=== PATIENT | male | born 1945 | race Caucasian/White ===

== ENCOUNTER → 2017-07-02 06:19 | Outpatient (CLI) | payer MEDICARE, SELFPAY ==
--- NOTE | 2017-07-02 09:59 | STRESSREP ---
Stress Test Report Date: 07/02/2017 Procedure: Exercise tolerance test/imaging study Indications: Chest pain Consent: Per the patient Procedure: The patient exercised on a Roger protocol for 6 minutes completing stage 2 achieving a peak heart rate of 157 bpm (106 % predicted maximal heart rate) with a peak blood pressure 190/82 mmHg and a peak MET capacity of 7 METs. The baseline ECG demonstrated normal sinus rhythm. The peak exercise ECG demonstrated no obvious ECG changes. There were no cardiac dysrhythmias pretest, during exercise, or recovery. The functional capacity was considered. There was no complaint of chest discomfort during exercise or recovery. The examination was discontinued secondary to dyspnea. Impression: 1. Technically adequate (percent predicted maximal heart rate greater than 85%) exercise tolerance test 2. Peak exercise ECG no obvious ECG changes 3. No cardiac dysrhythmias pretest, during exercise, or recovery. 4. Nuclear images pending Myocardial perfusion imaging study: Technique: The patient was injected with 11.9 mCi of technetium 99m Cardiolite and subsequently rest SPECT Cardiolite nuclear imaging was obtained in the horizontal long, vertical long, and short axis views. The patient exercised on a Rgoer protocol for 6 minutes completing stage 2 achieving a peak heart rate of 157 bpm (106 % predicted maximal heart rate) with a peak blood pressure 190/82 mmHg and a peak MET capacity of 7 METs. The patient was injected with 4.5 mCi of technetium 99m Cardiolite and subsequently stress SPECT Cardiolite nuclear imaging was obtained in the horizontal long, vertical long, and short axis views. A gated Cardiolite study at peak stress was obtained. Interpretation: Rest and stress SPECT Cardiolite nuclear imaging status post realignment, normalization, and attenuation correction, demonstrates the appearance of relative uniform tracer uptake and myocardial perfusion appearing within normal limits. There is end systolic thickening and brightening. The gated Cardiolite study demonstrates myocardial thickening and inward wall motion. The reported LVEF is 69 %. Impression: 1. Rest and stress SPECT Cardiolite nuclear imaging demonstrate relative uniform tracer uptake and myocardial perfusion appearing within normal limits. 2. The gated Cardiolite study reports an LVEF of 69 %. This note was generated with [employer] software. It may contain incorrect words, spelling, and punctuation that were not noted in checking the note before signing.
--- NOTE | 2017-07-02 10:03 | STRESSREP_ITS ---
Stress Test Report Date: 07/02/2017 Procedure: Exercise tolerance test/imaging study Indications: Chest pain Consent: Per the patient Procedure: The patient exercised on a Roger protocol for 6 minutes completing stage 2 achieving a peak heart rate of 157 bpm (106 % predicted maximal heart rate) with a peak blood pressure 190/82 mmHg and a peak MET capacity of 7 METs. The baseline ECG demonstrated normal sinus rhythm. The peak exercise ECG demonstrated no obvious ECG changes. There were no cardiac dysrhythmias pretest, during exercise, or recovery. The functional capacity was considered. There was no complaint of chest discomfort during exercise or recovery. The examination was discontinued secondary to dyspnea. Impression: 1. Technically adequate (percent predicted maximal heart rate greater than 85% ) exercise tolerance test 2. Peak exercise ECG no obvious ECG changes 3. No cardiac dysrhythmias pretest, during exercise, or recovery. 4. Nuclear images pending Myocardial perfusion imaging study: Technique: The patient was injected with 11.9 mCi of technetium 99m Cardiolite and subsequently rest SPECT Cardiolite nuclear imaging was obtained in the horizontal long, vertical long, and short axis views. The patient exercised on a Roger protocol for 6 minutes completing stage 2 achieving a peak heart rate of 157 bpm (106 % predicted maximal heart rate) with a peak blood pressure 190/ 82 mmHg and a peak MET capacity of 7 METs. The patient was injected with 4.5 mCi of technetium 99m Cardiolite and subsequently stress SPECT Cardiolite nuclear imaging was obtained in the horizontal long, vertical long, and short axis views. A gated Cardiolite study at peak stress was obtained. Interpretation: Rest and stress SPECT Cardiolite nuclear imaging status post realignment, normalization, and attenuation correction, demonstrates the appearance of relative uniform tracer uptake and myocardial perfusion appearing within normal limits. There is end systolic thickening and brightening. The gated Cardiolite study demonstrates myocardial thickening and inward wall motion. The reported LVEF is 69 %. Impression: 1. Rest and stress SPECT Cardiolite nuclear imaging demonstrate relative uniform tracer uptake and myocardial perfusion appearing within normal limits. 2. The gated Cardiolite study reports an LVEF of 69 %. This note was generated with [employer] software. It may contain incorrect words, spelling, and punctuation that were not noted in checking the note before signing.
== END ==
PROVIDERS: Family Provider Internal Medicine; PCP Internal Medicine; Visit Provider Internal Medicine
DX: R07.89 Other chest pain (principal)
CPT/HCPCS: 78452; 93017; A9500; A4216

== ENCOUNTER → 2017-12-29 09:22 | Outpatient (CLI) | payer MEDICARE, SELFPAY ==
[2017-12-29 10:08] LABS: PSA,Total - Annual Screen 2.15 ng/mL (0.00-4.00)
== END ==
PROVIDERS: Family Provider Internal Medicine; PCP Internal Medicine; Visit Provider Urology
DX: Z12.5 Encounter for screening for malignant neoplasm of prostate (principal)
CPT/HCPCS: 36415; 84153; G0103

== ENCOUNTER → 2019-01-16 13:56 | Outpatient (CLI) | payer MEDICARE, SELFPAY ==
[2019-01-16 15:24] LABS: PSA,Total- Diagnostic 1.49 ng/mL (0.0-4.0)
== END ==
PROVIDERS: Family Provider Internal Medicine; PCP Internal Medicine; Referring Provider Urology; Visit Provider Urology
DX: R97.20 Elevated prostate specific antigen [PSA] (principal)
CPT/HCPCS: 36415; 84153

== ENCOUNTER → 2020-01-23 13:53 | Outpatient (CLI) | payer MEDICARE, SELFPAY ==
[2020-01-23 14:44] LABS: PSA,Total- Diagnostic 1.78 ng/mL (0.0-4.0)
== END ==
PROVIDERS: PCP Internal Medicine; Referring Provider Urology; Visit Provider Urology
DX: R97.20 Elevated prostate specific antigen [PSA] (principal)
CPT/HCPCS: 36415; 84153

== ENCOUNTER → 2020-03-06 09:39 | Outpatient (CLI) | payer MEDICARE, SELFPAY ==
--- NOTE | 2020-03-06 09:41 | CDU_ITS ---
Reason For Study: ATHEROSCLEROSIS Rt. Velocities/BP Lt. Velocities/BP Prox CCA 103/19 cm/sec. Prox CCA 122/29 cm/sec. Mid CCA 110/23 cm/sec. Mid CCA 102/18 cm/sec. Dist CCA 80/20 cm/sec. Dist CCA 137/27 cm/sec. Prox ICA 55/15 cm/sec. Prox ICA 142/27 cm/sec. Mid ICA 75/25 cm/sec. Mid ICA 66/23 cm/sec. Dist ICA 92/33 cm/sec. Dist ICA 68/24 cm/sec. Rt. ICA/CCA = .9. Lt. ICA/CCA = 1.2. Prox ECA 144/17 cm/sec. Prox ECA 122/14 cm/sec. Rt. Vert. 43/13 cm/sec. Lt. Vert. 48/15 cm/sec. Right Extracranial There is heterogeneous, irregular atherosclerotic plaque noted in the right common carotid artery. There is heterogeneous, irregular atherosclerotic plaque noted in the right internal carotid artery. There is heterogeneous, smooth atherosclerotic plaque noted in the right external carotid artery. Antegrade flow is noted in the right vertebral artery. There is heterogeneous, smooth atherosclerotic plaque noted in the right bulb. Left Extracranial There is heterogeneous, irregular atherosclerotic plaque noted in the left common carotid artery. There is heterogeneous, smooth atherosclerotic plaque noted in the left internal carotid artery. There is heterogeneous, smooth atherosclerotic plaque noted in the left external carotid artery. Antegrade flow is noted in the left vertebral artery. There is homogeneous, smooth atherosclerotic plaque noted in the left bulb. Procedure Carotid Duplex 02100. Exam performed in department. Interpretation Summary Mild (<50%) stenosis right extracranial internal carotid. Mild (<50%) stenosis left extracranial internal carotid. Flow within the vertebral arteries is antegrade bilaterally. Smooth atherosclerotic plaque is noted in the carotid bulbs bilaterally, which does not appear to be hemodynamically significant. Ordering Physician: Cyndi Solis Referring Physician: Cyndi Solis Performed By: Vanesa Cruz, SUSANNECS, RVT
== END ==
PROVIDERS: PCP Internal Medicine; Referring Provider Internal Medicine; Visit Provider Internal Medicine
DX: I65.23 Occlusion and stenosis of bilateral carotid arteries (principal)
CPT/HCPCS: 93880

== ENCOUNTER 2020-10-15 06:27 | Day surgery (SDC) | payer MEDICARE, SELFPAY ==
[2020-09-05 14:13] VITALS: BMI 35.2
[2020-10-15] VITALS (7 sets, daily range): BP systolic 113–164; BP diastolic 59–93; PULSE 52–90; RESP 16–106; TEMP 36.1–36.8; O2SAT 94–100; BMI 33.3
[2020-10-15] MEDS: Lactated Ringers 1,000 ML 100 ML IV (07:00)
--- NOTE | 2020-10-15 07:03 | PCM.HP.BLA ---
History and Physical Date of Admission: 10/15/20 Intake Visit Reasons: CSCOPE, DUE 5 YRS, FAMILY HX Chief Complaint: screening c-scope Inside Channel Account Manager Required: No Is patient in pain?: No Allergies No Known Allergies Allergy (Unverified 09/05/20 14:14) Medications amlodipine 2.5 mg tablet tablet PO 09/05/20 [History Confirmed 09/05/20] aspirin 81 mg tablet,delayed release 81 mg PO DAILY 09/05/20 [History Confirmed 09/05/20] atorvastatin 40 mg tablet ea PO 09/05/20 [History Confirmed 09/05/20] hydrochlorothiazide 25 mg tablet tablet PO 09/05/20 [History Confirmed 09/05/20] lisinopril 40 mg tablet ea PO 09/05/20 [History Confirmed 09/05/20] PFSH Medical History (Updated 09/05/20 @ 14:12 by Luiza Valles) Family history of colon cancer High cholesterol Hypertension Personal history of colonic polyps Surgical History (Updated 09/05/20 @ 14:11 by Luiza Valles) S/P hernia repair Family History (Updated 09/05/20 @ 14:12 by Luiza Valles) Father Cancer prostate Mother Colon cancer Social History (Updated 09/05/20 @ 14:13 by Luiza Valles) Smoking Status: Never smoker alcohol intake: never HPI HPI HPI: ALEJANDRA CADET, is a 75 M who presents to the office today for surgical consultation regarding a colonoscopy because of a personal history of colon polyps and a family history of colon cancer in his mother. The patient had a colonoscopy by Dr. Cy Puentes 2008 and that he had a colonoscopy by Dr. Ajit Arango May 2015. On both of those events polyps were identified. No evidence of malignancy. He denies any bright red blood per rectum or melena. No abdominal pain. Weights been steady. He does like walking for exercise. He does have sleep apnea and uses a CPAP machine. It is of note that he states where is the first several endoscopy procedures they were not remarkable but that his most recent one he became quite anxious and tachycardic ahead of time. He does not have an explanation for that but simply made comment He is referred by his primary care physician Dr. Cyndi Soils and a written compromise surgical consult recommendations will return to her HPI HPI HPI: ALEJANDRA CADET, is a 75 M who presents to the office today for ROS General General: No weight change, appetite, fatigue, colon cancer, breast cancer or weakness HEENT HEENT: No difficulty swallowing, eye injury, eye surgery, swollen glands or hoarseness Endo Endocrine: No thyroid disease, diabetes mellitus, thyroid cancer, Hair loss, heat intolerance or cold intolerance Skin Skin: No rash or changing moles Breast Breast: No left breast lump, right breast lump, nipple discharge, breast pain, abnormal mammogram, abnormal US or breast enlargement Musc Musculoskeletal: No back problems, arthritis, rheumatoid arthritis, gout or joint pain Cardio Cardiovascular: Yes high blood pressure; No murmur, pacemaker, heart disease, atrial fibrillation, heart attack, heart stent, palpitations, shortness of breat with exertion or chest pain Psych Psychiatric: No depression, anxiety or hearing voices Resp Respiratory: No shortness of breath, Yes sleep apnea, No cough, No COPD, No asthma, No emphysema and No wheezing Gastro Gastrointestinal: No abdominal pain, No nausea or vomiting, No diarrhea, No constipation, No blood in stool, No acid reflux, No hemorrhoids, No ulcers, No gallbladder problem and No black,tarry stools Piyush Hematologic: No blood thinners, No blood disorders, No bleeding, No anemia and No blood clots Neuro Neurologic: No system reviewed and no additional complaints, except as documented, No as per HPI, No abnormal gait, No abnormal hearing, No abnormal movements, No abnormal speech, No behavioral changes, No burning sensations, No confusion, No convulsions, No disequilibrium, No dizziness, No localized weakness, No frequent falls, No headache(s), No lack of coordination, No loss of vision, No memory loss, No numbness, No other visual disturbances, No radicular pain, No restless legs, No sensory deficit, No syncope, No tingling, No tremor(s), No weakness and No other Exam Const General: cooperative and healthy appearing Nutritional Appearance: overweight HENMT Head: normal to inspection Neck Neck: normal visual inspection Carotids: normal carotid upstroke and no bruits Chest Breast Palpation: No nipple discharge Resp Effort & Inspection: normal respiratory effort Auscultation: clear to auscultation bilaterally Cardio Rate: regular rate Rhythm: regular rhythm Heart Sounds: no murmurs GI Palpation: soft and no hepatosplenomegaly Auscultation: normal bowel sounds Skin General: no rashes or lesions noted Neuro Cognition: normal cognition Extrem Other: Trace bilateral extremity ankle edema Psych Thought Content: normal Assessment and Plan Assessment and Plan (1) Personal history of colonic polyps: Status: Acute Plan - Dr. Kendall Granados MD: Personal history of colon polyps and family history of colon cancer in his mother. I recommend him a colonoscopy with possible biopsy or polypectomy as indicated. He is aware of the technique, benefit, risk and alternatives. He has had an opportunity to ask and have questions answered. He is not specific as to why more recently has had anxiety regarding medical events and procedures. We will assist by utilizing monitored anesthesia care. I appreciate the opportunity of assisting with her surgical care. Copy: Dr. Cyndi Granados M.D., F.A.C.S. (2) Family history of colon cancer: Status: Acute I have re-examined the patient. There are no clinical changes since date of exam.
--- NOTE | 2020-10-15 07:30 | COLBX_PTH ---
PATIENT: ALEJANDRA CADET LOC: EN U#:[id number] AGE/SX: 75/M ROOM: RE10/15/[address]: Dr. Kendall Granados MD : 1945 BED: DIS: 10/15/2020 SPEC #: [id number] RECD: 10/15/20 10:25 STATUS: LIAM DANIA #: [id number] LUIS ENRIQUE: 10/15/20 07:[address]: Kendall Granados DEPT: SURGICAL PATHOLOGY RECD BY: Fide Hoffman ENTERED: 10/15/20 13:17 SP TYPE: COLON BX OTHR DR: Dr. Cyndi Solis MD Tissues: Ascending colon Procedures: Surgery Specimen Level IV HEADER OPERATION: Colonoscopy (MAC) PRE-OP DIAGNOSIS: History of colon polyps; family history of colon cancer TISSUE SUBMITTED: Mid ascending colon polyp MICROSCOPIC DIAGNOSIS Mid ascending colon polyp, biopsy: Fragments of tubular adenoma. AM:heather 10/16/2020 MICROSCOPIC DESCRIPTION Slides are reviewed. GROSS DESCRIPTION Received in fixative is one container labeled with the patient's name and designated mid ascending colon polyp. The specimen consists of a piece of campbell-pink polyp measuring 0.5 x 0.4 x 0.3 cm. The specimen is totally submitted in one cassette. / SJ:heather 10/15/20 TC:5 CPT: 50210
--- NOTE | 2020-10-15 08:08 | OP.COLON_ITS ---
Patient Name: Luc Kulkarni Procedure Date: 10/15/2020 7:36 AM Date of : 1945 Age: 75 Procedure: Colonoscopy Indications: High risk colon cancer surveillance: Personal history of colonic polyps, Family history of colon cancer in a first-degree relative Providers: Kendall Granados MD Medicines: See the Anesthesia note for documentation of the administered medications Patient Profile: Last Colonoscopy: May 2015. Complications: No immediate complications. Procedure: Pre-Anesthesia Assessment: - Prior to the procedure, a History and Physical was performed, and patient medications and allergies were reviewed. The patient's tolerance of previous anesthesia was also reviewed. The risks and benefits of the procedure and the sedation options and risks were discussed with the patient. All questions were answered, and informed consent was obtained. Prior Anticoagulants: The patient has taken no previous anticoagulant or antiplatelet agents. ASA Grade Assessment: II - A patient with mild systemic disease. After reviewing the risks and benefits, the patient was deemed in satisfactory condition to undergo the procedure. After I obtained informed consent, the scope was passed under direct vision. Throughout the procedure, the patient's blood pressure, pulse, and oxygen saturations were monitored continuously. The adult colonoscope was introduced through the anus and advanced to the cecum, identified by appendiceal orifice and ileocecal valve. The colonoscopy was performed without difficulty. The patient tolerated the procedure well. The quality of the bowel preparation was good. The ileocecal valve and the appendiceal orifice were photographed. Scope In: 7:44:02 AM Scope Withdrawal Time 0 hours 11 minutes 30 seconds Scope Out: 8:02:38 AM Total Procedure Duration Time 0 hours 18 minutes 36 seconds Findings: The digital rectal exam findings include non-thrombosed internal hemorrhoids, internal hemorrhoids that prolapse with straining, but require manual replacement into the anal canal (Grade III) and enlarged prostate. A 7 mm polyp was found in the mid ascending colon. The polyp was sessile. The polyp was removed with a hot snare. Resection and retrieval were complete. Scattered diverticula were found in the sigmoid colon. Impression: - Non-thrombosed internal hemorrhoids, internal hemorrhoids that prolapse with straining, but require manual replacement into the anal canal (Grade III) and enlarged prostate found on digital rectal exam. - One 7 mm polyp in the mid ascending colon, removed with a hot snare. Resected and retrieved. - Diverticulosis in the sigmoid colon. Recommendation: - Discharge patient to home. - Resume previous diet. - Continue present medications. - Repeat colonoscopy in 5 years for surveillance based on pathology results. - Telephone my office for pathology results in 1 week. Procedure Code(s): --- Professional --- 81074, Colonoscopy, flexible; with removal of tumor(s), polyp(s), or other lesion(s) by snare technique Diagnosis Code(s): --- Professional --- Z86.010, Personal history of colonic polyps D12.2, Benign neoplasm of ascending colon K64.2, Third degree hemorrhoids Z80.0, Family history of malignant neoplasm of digestive organs N40.0, Benign prostatic hyperplasia without lower urinary tract symptoms K57.30, Diverticulosis of large intestine without perforation or abscess without bleeding CPT copyright 2017 [employer]. All rights reserved. The codes documented in this report are preliminary and upon health benefits specialist review may be revised to meet current compliance requirements. Kendall Granados MD 10/15/2020 8:08:06 AM This report has been signed electronically. Number of Addenda: 0 Note Initiated On: 10/15/2020 7:36 AM
--- NOTE | 2020-10-15 08:08 | OP.CCLET_ITS ---
10/15/2020 Cyndi Solis Re : Colonoscopy procedure for Luc Eatonr Irma This procedure was performed on Thursday, October 15, 2020. My impressions and recommendations are as follows: Impressions : - Non-thrombosed internal hemorrhoids, internal hemorrhoids that prolapse with straining, but require manual replacement into the anal canal (Grade III) and enlarged prostate found on digital rectal exam. - One 7 mm polyp in the mid ascending colon, removed with a hot snare. Resected and retrieved. - Diverticulosis in the sigmoid colon. Recommendations : - Discharge patient to home. - Resume previous diet. - Continue present medications. - Repeat colonoscopy in 5 years for surveillance based on pathology results. - Telephone my office for pathology results in 1 week. My findings are described in the full procedure note, which is enclosed. If I can be of further assistance, please feel free to contact me at Doctor phone number(s): Work: . Sincerely, Kendall Granados MD 10/15/2020 8:08:06 AM This report has been signed electronically.
== END 2020-10-15 08:44 ==
LOC: EN 06:28 → AC 06:30
PROVIDERS: PCP Internal Medicine; Referring Provider Internal Medicine; Visit Provider Surgery
PROC: 0DJD8ZZ Inspection of Lower Intestinal Tract, Via Natural or Artificial Opening Endoscopic (ICD-10-PCS; CPT 45378; principal; 2020-10-15 07:25)
DX: Z12.11 Encounter for screening for malignant neoplasm of colon (principal); D12.2 Benign neoplasm of ascending colon; K64.2 Third degree hemorrhoids; K57.30 Diverticulosis of large intestine without perforation or abscess without bleeding; Z86.010 Personal history of colon polyps; Z80.0 Family history of malignant neoplasm of digestive organs; N40.0 Benign prostatic hyperplasia without lower urinary tract symptoms; Z79.82 Long term (current) use of aspirin
CPT/HCPCS: 45385; 88305; J7120; J2405

== ENCOUNTER → 2021-02-03 11:36 | Outpatient (CLI) | payer MEDICARE, SELFPAY ==
[2021-02-03 12:52] LABS: PSA,Total- Diagnostic 2.17 ng/mL (0.0-4.0)
== END ==
PROVIDERS: PCP Internal Medicine; Referring Provider Urology; Visit Provider Urology
DX: R97.20 Elevated prostate specific antigen [PSA] (principal)
CPT/HCPCS: 36415; 84153

== ENCOUNTER → 2021-02-07 14:46 | Outpatient (CLI) | payer MEDICARE, SELFPAY ==
--- NOTE | 2021-02-07 14:48 | US_ITS ---
STUDY: SCROTUM ULTRASOUND REASON FOR EXAM: Male, 75 years old. TESTICULAR PAIN TECHNIQUE: Ultrasound evaluation of the scrotum was performed with color Doppler and static perez-scale imaging. COMPARISON: 09/30/2016 FINDINGS: RIGHT TESTICLE INTRATESTICULAR: There is a normal size of the right testicle. The right testicle measures 4.5 x 2.6 x 2.6 cm. There is a homogenous echotexture. There is normal arterial and normal venous vascularity. There is no demonstrated right testicular mass or cyst. EXTRATESTICULAR: The epididymis is normal in size. The epididymis head measures 0.8 x 1.0 x 0.8 cm. There is normal vascularity of the epididymis. There is no demonstrated epididymal cystic structure. There is no demonstrated hydrocele. There is no demonstrated varicocele. There is no demonstrated extratesticular mass or cyst. LEFT TESTICLE INTRATESTICULAR: There is a normal size of the left testicle. The left testicle measures 4.6 x 2.6 x 2.2 cm. There is a homogenous echotexture. There is normal arterial and normal venous vascularity. There is no demonstrated left testicular mass or cyst. EXTRATESTICULAR: The epididymis is normal in size. The epididymis head measures 0.7 x 1.1 x 1.0 cm. There is normal vascularity of the epididymis. There is no demonstrated epididymal cystic structure. There is no demonstrated hydrocele. There is no demonstrated varicocele. There is no demonstrated extratesticular mass or cyst. US/Testicular with Arterial Flow IMPRESSION: Normal bilateral testicles. Electronically Signed: Gaurang Rahman MD at 16:02 EDT Tel , Service support ,
== END ==
PROVIDERS: PCP Internal Medicine; Referring Provider Internal Medicine; Visit Provider Internal Medicine
DX: N50.811 Right testicular pain (principal); N50.812 Left testicular pain; I79.8 Other disorders of arteries, arterioles and capillaries in diseases classified elsewhere
CPT/HCPCS: 76870; 93976

== ENCOUNTER → 2021-02-17 08:51 | Outpatient (CLI) | payer MEDICARE, SELFPAY ==
--- NOTE | 2021-02-17 08:54 | EKG12_ITS ---
Test Reason : PRE OP Blood Pressure : / mmHG Vent. Rate : 086 BPM Atrial Rate : 086 BPM P-R Int : 194 ms QRS Dur : 100 ms QT Int : 390 ms P-R-T Axes : 057 -37 047 degrees QTc Int : 466 ms Normal sinus rhythm Left axis deviation Abnormal ECG Confirmed by MARY ANNE ANDRE, BLANE ([id number]), manuscript editor GAGANDEEP GUNDERSON ([id number]) on 02/17/2021 1:42:33 PM Referred By: Aldair Bullock Confirmed By:BLANE NORTH MD
[2021-02-17 10:42] LABS: Hematocrit 39.6 % (40-54); Hemoglobin 13.1 g/dL (13.0-16.5); Mean Corp Hgb Conc 33.1 g/dL (32-36); Mean Corpuscular Volume 90.6 fL (80-94); Mean Platelet Vol. 12.1 fl (6.2-12.0); Platelet Count 170 K/mm3 (150-450); RBC Distribution Width CV 12.3 % (11.6-14.6); RBC Distribution Width SD 41.1 fl (35.1-43.9); Red Blood Count 4.37 M/mm3 (4.6-6.2); White Blood Count 7.8 K/mm3 (4.4-11.0)
[2021-02-17 11:15] LABS: Anion Gap 8 (5-15); BUN 16 mg/dL (7-18); BUN/Creat Ratio 11.9 RATIO (10-20); Calcium,Total 9.3 mg/dL (8.5-10.1); Chloride 103 mmol/L (98-107); Creatinine, Serum 1.34 mg/dL (0.70-1.30); EST Glomerular Filtration Rate 55 mL/min (>60); Est Glom Filt Rate - Afr Amer 67 mL/min (>60); Glucose 98 mg/dL (74-106); Potassium 3.4 mmol/L (3.5-5.1); Sodium Level 140 mmol/L (136-145)
== END ==
PROVIDERS: PCP Internal Medicine; Referring Provider Urology; Visit Provider Urology
DX: Z01.812 Encounter for preprocedural laboratory examination (principal); Z01.810 Encounter for preprocedural cardiovascular examination; I10 Essential (primary) hypertension
CPT/HCPCS: 36415; 80048; 85027; 93005

== ENCOUNTER → 2022-05-28 | Outpatient (CLI) | payer MEDICARE, SELFPAY ==
--- NOTE | 2022-05-28 07:38 | US_ITS ---
STUDY: ABDOMINAL ULTRASOUND - RIGHT UPPER QUADRANT REASON FOR VISIT: Male, 76 years old elevated liver function tests -- elevated liver function tests TECHNIQUE: Ultrasound evaluation of the right upper quadrant was performed with real-time and static perez-scale imaging. TECHNICAL QUALITY: Adequate. COMPARISON: None. FINDINGS: Liver: The liver measures 16.6 cm. There is increased echogenicity consistent with fatty infiltration. The bile ducts are within normal limits. There is hepatic color flow. The direction of portal flow is hepatopetal. There is a 1.9 cm x 2.3 cm x 1.8 cm cyst in the left lobe of liver. There is also evidence of a 7 mm x 10 mm x 6 mm hypoechoic solid nodule in the left lobe. A calcified granuloma is seen in the right lobe. Gallbladder: Normal distended gallbladder. The gallbladder wall measures 2.1 mm. There is a negative sonographic Puentes''s sign. There is no pericholecystic fluid. There are no gallstones. There is a 3 mm x 3 mm x 3 mm gallbladder polyp adherent to the gallbladder wall. Common Bile Duct (C.B.D.): The common bile duct measures 7.1 mm. Pancreas: Normal size of the head, body and tail of the pancreas. There is increased echogenicity of the pancreas. There is no demonstrated pancreatic mass or cyst. Right Kidney: Normal size of the right kidney. The right kidney measures 10.1 cm x 5.1 cm x 5.9 cm. Normal renal cortex. The right cortex measures 1.7 cm. There are 2 renal cysts. The larger measures 1.9 cm x 1.7 cm x 1.3 cm. There is no right hydronephrosis. US/Abdomen Limited IMPRESSION: Fatty infiltration of the liver. 1.9 cm x 2.3 cm x 1.8 cm cyst in the left lobe. 7 mm x 10 mm x 6 mm hypoechoic solid nodule in the left lobe. Follow-up imaging is recommended. Renal cysts. Electronically Signed: Steve Manzanares MD at 9:59 EST ,
--- NOTE | 2022-05-28 07:39 | US_ITS ---
STUDY: ABDOMINAL ULTRASOUND - ELASTOGRAPHY REASON FOR VISIT: Male, 76 years old. Elevated liver function tests. TECHNIQUE: Liver stiffness measurements were obtained on a KeraFAST RS 85 ultrasound machine using a CA 1-7 probe following the SRU guidelines. 3 measurements were obtained using a 2-D-SWE method. TheIQR/M was 23% suggesting a quality data set. TECHNICAL QUALITY: Adequate. COMPARISON: Comparison is made with prior study done earlier in the day. FINDINGS: Liver: Fatty infiltration of the liver. Median liver stiffness measured 6.3 kPa. US/Elastography Parenchyma/Organ IMPRESSION: Liver stiffness measures 6.3 kPa compatible with F2-F3 (Mild to moderate liver fibrosis) Metavir score. Electronically Signed: Steve Manzanares MD at 10:19 EST ,
== END | disposition home or self-care (01) ==
LOC: US 07:37
PROVIDERS: PCP Internal Medicine; Referring Provider Internal Medicine; Visit Provider Internal Medicine
DX: N28.1 Cyst of kidney, acquired (principal); K76.0 Fatty (change of) liver, not elsewhere classified; R79.89 Other specified abnormal findings of blood chemistry
CPT/HCPCS: 76705; 76981

== ENCOUNTER → 2022-06-18 | Outpatient (CLI) | payer MEDICARE, SELFPAY ==
--- NOTE | 2022-06-18 08:09 | CT_ITS ---
STUDY: CT ABDOMEN AND PELVIS WITH AND WITHOUT CONTRAST REASON FOR EXAM: Male, 76 years old. ] Hepatic cyst. Hypoechoic nodule in the left lobe of the liver. RADIATION DOSAGE (If Supplied By Facility): CTDIvol = ( 23.75 ) mGy, DLP = ( 2703.98 ) mGycm TECHNIQUE: Transaxial images were obtained from the dome of the diaphragm to the symphysis pubis without oral contrast. IV 100mL Isovue-300 was administered. Sagittal and coronal images were reconstructed. Individualized dose optimization techniques were used for this CT. COMPARISON: Comparison is made with prior sonogram dated 11/25/2022. FINDINGS: Calcified granuloma in the posterior medial segment of the right lower lobe. The visualized portions of the heart are within normal limits. Small [place] hernia in the posterior medial aspect of the right hemidiaphragm. Calcified granuloma in the mid anterior aspect of the right lobe of the liver. There is a 1.7 cm x 1.7 cm cyst in the lateral aspect of the left lobe of the liver. There is also evidence of a 0.9 cm cyst in the inferior aspect of the left lobe of liver. Diffuse fatty infiltration of the liver. Normal gallbladder and extrahepatic biliary system. There are multiple benign calcified granulomata of the spleen. Normal pancreas. Normal bilateral adrenal glands. Normal right kidney. Normal left kidney. Normal visualized stomach. Normal small intestine. There are multiple colonic diverticula consistent with diverticulosis. The appendix is visualized and appears normal. There is scattered atherosclerotic calcification of the abdominal aorta and its major visceral branches, without a demonstrated aneurysm. Normal inferior vena cava. Normal retroperitoneum. Normal urinary bladder. There is enlargement of the prostate gland. It measures 5 cm x 5 cm. This causes indentation of the bladder base. There is a left-sided inguinal hernia containing adipose tissue. There are diffuse degenerative changes of the visualized lumbar spine. CT/CT Abd/Pelvis W/WO Contrast IMPRESSION: Diffuse fatty infiltration of the liver. Hepatic cysts more prominent than the left lobe. Calcified granuloma in the right lobe of the liver. Multiple calcified splenic granulomas. Electronically Signed: Steve Manzanares MD at 10:17 EST ,
[2022-06-18 08:55] LABS: CREATININE FINGERSTICK < 0.9 mg/dL (0.70-1.30); EGFR FINGERSTICK > 60.0000 mL/min (>60)
== END | disposition home or self-care (01) ==
LOC: CT 08:08
PROVIDERS: PCP Internal Medicine; Referring Provider Internal Medicine; Visit Provider Internal Medicine
DX: K76.89 Other specified diseases of liver (principal)
CPT/HCPCS: 74178; Q9967

== ENCOUNTER → 2022-08-27 | Outpatient (CLI) | payer MEDICARE, SELFPAY ==
--- NOTE | 2022-08-27 08:46 | US_ITS ---
STUDY: ABDOMINAL ULTRASOUND - RIGHT UPPER QUADRANT REASON FOR VISIT: Male, 77 years old LIVER CYST TECHNIQUE: Ultrasound evaluation of the right upper quadrant was performed with real-time and static perez-scale imaging. TECHNICAL QUALITY: Adequate. COMPARISON: Comparison is made with prior study dated May 28, 2022. FINDINGS: Liver: The liver measures 14 cm. There is increased echogenicity consistent with fatty infiltration. The bile ducts are within normal limits. There is hepatic color flow. The direction of portal flow is hepatopetal. There is a 1.8 cm x 2.7 cm x 1.8 cm cyst in the left lobe. This is unchanged. Calcified granuloma in the right lobe of the liver. Gallbladder: Normal distended gallbladder. The gallbladder wall measures 1.2 mm. There is a negative sonographic Puentes''s sign. There is no pericholecystic fluid. Stable 3.4 mm x 3.5 mm x 2.7 mm rounded nodular density adherent to the gallbladder wall. This may represent a small polyp versus a tiny gallstone. This is unchanged. This measures 4 mm x 3 mm x 3 mm. Common Bile Duct (C.B.D.): The common bile duct measures 4 mm. Pancreas: Normal size of the head, body and tail of the pancreas. There is normal echogenicity of the pancreas. There is no demonstrated pancreatic mass or cyst. Right Kidney: Normal size of the right kidney. The right kidney measures 10.5 cm x 5.3 cm x 6.6 cm. Normal renal cortex. The right cortex measures 1.2 cm. 2 renal cysts are seen. The largest measures 1.7 cm by 1.7 cm x 1.3 cm. There is no right hydronephrosis. US/Liver IMPRESSION: Fatty infiltration of the liver. Stable hepatic cyst. Stable right renal cysts. Small polyp or tiny gallstone adherent to the gallbladder wall. Electronically Signed: Steve Manzanares MD at 15:16 EDT ,
--- NOTE | 2022-08-27 09:00 | US_ITS ---
STUDY: RENAL ULTRASOUND - COMPLETE REASON FOR EXAM: Male, 77 years old. History of renal cysts. TECHNIQUE: Ultrasound evaluation of the kidneys was performed with real-time and static malik-scale imaging. COMPARISON: None. FINDINGS: RIGHT KIDNEY: Normal location of the right kidney, which is normal in size. The right kidney measures 9.7 cm x 4.9 cm x 6 cm. There is a normal cortex of the right kidney. The renal cortex measures 1.4 cm. 2 renal cysts are seen. The larger measures 1.7 cm x 1.9 cm x 1.3 cm. There are no right renal calculi. There is no right hydronephrosis. DISTAL RIGHT URETER: There is non-visualization of the distal right ureter. There is no demonstrated right ureterovesical junction calculus. There is a visualized right ureteral jet. LEFT KIDNEY: Normal location of the left kidney, which is normal in size. The left kidney measures 10.4 cm x 4.6 cm x 5.9 cm. There is a normal cortex of the left kidney. The renal cortex measures cm. There is no left renal mass or cyst. There are no left renal calculi. There is no left hydronephrosis. DISTAL LEFT URETER: There is non-visualization of the distal left ureter. There is no demonstrated left ureterovesical junction calculus. There is a visualized left ureteral jet. BLADDER: The distended urinary bladder has a volume of 146 ml. The empty urinary bladder has a volume of 31 ml. There is a normal wall thickness of the distended urinary bladder. There is no demonstrated mass within the urinary bladder. There are no demonstrated bladder calculi. US/Kidney and Bladder IMPRESSION: There are 2 cysts in the right kidney. Electronically Signed: Steve Manzanares MD at 9:54 EDT ,
== END | disposition home or self-care (01) ==
LOC: US 08:45
PROVIDERS: PCP Internal Medicine; Referring Provider Internal Medicine; Visit Provider Internal Medicine
DX: K76.89 Other specified diseases of liver (principal); N28.1 Cyst of kidney, acquired
CPT/HCPCS: 76705; 76770

== ENCOUNTER → 2022-11-18 | Outpatient (CLI) | payer MEDICARE, SELFPAY ==
--- NOTE | 2022-11-18 12:45 | CDU_ITS ---
Reason For Study: Atherosclerosis bilateral carotid arteries Rt. Velocities/BP Lt. Velocities/BP Prox CCA 117.7/23.3 cm/sec. Prox CCA 117.7/23.3 cm/sec. Mid CCA 126.4/23.3 cm/sec. Mid CCA 137.4/25.5 cm/sec. Dist CCA 89.1/21.1 cm/sec. Dist CCA 150.6/32.0 cm/sec. Prox ICA 74.3/17.6 cm/sec. Prox ICA 116.2/15.7 cm/sec. Mid ICA 75.7/22.7 cm/sec. Mid ICA 66.8/23.0 cm/sec. Dist ICA 99.6/36.9 cm/sec. Dist ICA 54.3/18.2 cm/sec. Rt. ICA/CCA = 0.6. Lt. ICA/CCA = 0.5. Prox ECA 152.1/20.4 cm/sec. Prox ECA 154.5/19.7 cm/sec. Rt. Vert. 49.0/14.9 cm/sec. Lt. Vert. 40.3/10.4 cm/sec. Right Extracranial There is heterogeneous, irregular atherosclerotic plaque noted in the right common carotid artery. There is heterogeneous, irregular atherosclerotic plaque noted in the right internal carotid artery. The atherosclerotic plaque causes acoustic shadowing. There is heterogeneous, irregular atherosclerotic plaque noted in the right external carotid artery. Antegrade flow is noted in the right vertebral artery. Left Extracranial There is heterogeneous, irregular atherosclerotic plaque noted in the left common carotid artery. There is heterogeneous, irregular atherosclerotic plaque noted in the left internal carotid artery. The atherosclerotic plaque causes acoustic shadowing. There is heterogeneous, irregular atherosclerotic plaque noted in the left external carotid artery. Antegrade flow is noted in the left vertebral artery. Procedure Carotid Duplex [id number]. This is a Carotid Duplex examination using B-mode, color flow and specral Doppler. The exam was diagnostic. Exam performed in department. VL/Carotid Duplex Ultrasound Interpretation Summary Irregular calcific plaque with shadowing at the proximal right internal carotid artery with less than 50% stenosis Less than 50% stenosis right external carotid artery Irregular calcific plaque with shadowing at the proximal left internal carotid artery with less than 50% stenosis Less than 50% stenosis left external carotid artery Patent and antegrade vertebral arteries bilaterally No advancement of disease since the previous study of March 06, 2020 Ordering Physician: Cyndi Solis Referring Physician: Cyndi Solis Performed By: Biju Sutherland RVT
== END | disposition home or self-care (01) ==
LOC: CVS 12:45
PROVIDERS: PCP Internal Medicine; Referring Provider Internal Medicine; Visit Provider Internal Medicine
DX: I65.23 Occlusion and stenosis of bilateral carotid arteries (principal)
CPT/HCPCS: 93880

== ENCOUNTER → 2023-06-16 | Outpatient (CLI) | payer MEDICARE, SELFPAY ==
--- NOTE | 2023-06-16 13:00 | MASS_PTH ---
PATHOLOGY RESULTS PATIENT: ALEJANDRA CADET LOC: [facility] U#:[id number] AGE/SX: 77/M ROOM: RE06/16/[address]: Dr. Kendall Granados MD : 1945 BED: DIS: 06/16/2023 SPEC #: [id number] RECD: 06/17/23 07:31 STATUS: LIAM DANIA #: [id number] LUIS ENRIQUE: 06/16/23 13:[address]: Kendall Granados DEPT: SURGICAL PATHOLOGY RECD BY: Mariposa Chen ENTERED: 06/17/23 07:33 SP TYPE: Mass OTHR DR: Dr. Cyndi Solis MD Tissues: Rib cage, NOS Procedures: Surgery Specimen Level IV HEADER OPERATION: Excision of mass on right rib cage PRE-OP DIAGNOSIS: Mass right side TISSUE SUBMITTED: Mass right side MICROSCOPIC DIAGNOSIS Mass, right side of rib cage, excision: Cavernous hemangioma. AM:heather 06/18/2023 COMMENT Case has been reviewed in consultation with Dr. Phelps who concurs with the above diagnosis. IDC:[id number] MICROSCOPIC DESCRIPTION Slides are reviewed. GROSS DESCRIPTION Received in fixative is one container labeled with the patient's name and designated right side mass. The specimen consists of an ellipse of light campbell excised skin measuring 2.4 x 1.1 cm. Attached to this is an irregular fragment of yellow-campbell soft tissue measuring 3.0 x 3.0 x 2.0 cm. Serial sections reveal hemorrhagic cut surface in an area measuring 2.0 x 1.5 cm. The skin does not contain lesions. Briquetter Operator sections are submitted in three cassettes. / AM:heather 06/17/2023 TC:1 CPT: 99402
== END | disposition home or self-care (01) ==
PROVIDERS: PCP Internal Medicine; Visit Provider Surgery
DX: R22.9 Localized swelling, mass and lump, unspecified (principal)
CPT/HCPCS: 88305

== ENCOUNTER 2023-10-17 08:21 | Emergency (ER) | payer MEDICARE, SELFPAY ==
[2023-10-17 08:21] VITALS: BP 151/87; PULSE 113; RESP 16; TEMP 36.6; O2SAT 100; BMI 30.8
--- NOTE | 2023-10-17 08:39 | ED.VIS.LOWEX ---
HPI History of Present Illness HPI Narrative: Patient presents with right leg pain and swelling that began yesterday. Patient states it is gradually gotten worse. Patient states it has been constant. Patient describes it as a tightness. Patient states it is mainly on the lower leg. Patient states that when he had it elevated last night he felt some sharp pain at times. Patient states it is actually better with movement. Patient denies any paresthesias or weakness. Denies any trauma or injury. Patient has been wearing a knee brace intermittently over the past week. Chief Complaint: Lower Extremity Injury Informant: patient Onset/Context/Timing Onset: Yesterday Context: Gradual Onset Timing: Continuous Quality of Pain: - (Tightness) Location: Right lower leg Worsened by: Nothing Relieved by: Movement Associated Symptoms Associated Symptoms: Negative for Parasthesia, Weakness or Loss of Funtion PFSH [facility] Medical History Wears glasses Easy bruising Non-smoker CPAP (continuous positive airway pressure) dependence Sleep apnea History of stress test (~07/02/17) Family history of colon cancer Personal history of colonic polyps High cholesterol Hypertension Home Medications ?Medication ?Instructions ?Recorded ?Last Taken ?Type amlodipine 2.5 mg tablet 2.5 tablet PO DAILY 09/05/20 10/15/20 History aspirin 81 mg tablet,delayed 81 mg PO DAILY 09/05/20 Unknown History release atorvastatin 40 mg tablet 40 mg PO QHS 09/05/20 Unknown History hydrochlorothiazide 25 mg tablet 25 tablet PO DAILY 09/05/20 Unknown History lisinopril 40 mg tablet 40 mg PO DAILY 09/05/20 10/15/20 History Allergy/AdvReac Type Severity Reaction Status Date / Time adhesive tape AdvReac Mild Other Verified 10/17/23 08:21 Family History Father Cancer prostate Mother Colon cancer Surgical History Hx of inguinal hernia repair Hx of umbilical hernia repair Hx of colonoscopy S/P hernia repair Social History Smoking Status: Never smoker alcohol intake: never substance use type: does not use ROS ROS ED Constitutional Constitutional ED: Denies chills or fever(s) Eyes Eyes: Denies blurry vision or change in vision ENT ENT ED: Denies rhinorrhea or sore throat Cardiovascular Cardiovascular: Denies chest pain or palpitations Respiratory/Chest Respiratory/Chest: Denies cough or dyspnea Gastrointestinal Gastrointestinal: Denies nausea or vomiting Genitourinary Genitourinary ED: Denies dysuria or hematuria Musculoskeletal Musculoskeletal: Denies back pain or neck pain Integumentary Denies abscess or rash Neurologic Neurologic: Denies headache(s) or weakness Allergic/Immunologic Allergic/Immunologic ED: Denies mouth swelling or urticaria EXAM Physical Exam Const Vital Signs: 10/17/23 08:21 Temperature 97.9 F Temperature Source Temporal Pulse Rate 113 H Respiratory Rate 16 Blood Pressure 151/87 H Blood Pressure Mean 108 Pulse Ox 100 Oxygen Delivery Method Room Air Positive well nourished and well developed General Appearance ED: well developed and NAD HEENT Reports moist mucous membranes Neck full ROM and supple Extremity Extremity Narrative: There is edema and tenderness of the right lower leg. There is no ecchymosis. There is no bony crepitance or step-off noted. There is no obvious deformity noted. There is no evidence of compartment syndrome at this time. There is good range of motion of the right knee and right ankle. Pedal pulses are equal bilaterally. Sensation was intact to light touch in all digits. Capillary refill was less than 2 seconds in all digits. General Extremety ED: Yes edema General Extremity: edema Neuro oriented x3, CN's II-XII intact bilaterally, moves all extremities and no sensory deficits noted Sensorium / Orientation: alert Motor Exam: strength 5/5 throughout Psych mental status grossly normal MDM MDM MDM Narrative Medical decision making narrative: Differential diagnosis includes DVT, calf strain, and peripheral edema. Venous duplex of the right lower extremity will be obtained to assess for DVT. PT with INR and PTT will be obtained to assess for coagulopathy. CBC will be obtained to assess for leukocytosis and anemia. Basic metabolic profile will be obtained to assess for electrolyte abnormality and renal function. Lab Data Attestation: I reviewed the patient's lab results. Lab results narrative: CBC was reviewed and was within normal limits. Basic metabolic profile was reviewed and was within normal limits. PT was INR and PTT were reviewed and were within normal limits. Labs: Laboratory Results - last 24 hr 10/17/23 08:52 WBC 9.7 RBC 3.81 L Hgb 11.4 L Hct 34.8 L MCV 91.3 MCH 29.9 MCHC 32.8 RDW Std Deviation 40.8 RDW Coeff of Boo 12.1 Plt Count 184 MPV 11.5 Immature Gran % (Auto) 0.600 Neut % (Auto) 76.8 H Lymph % (Auto) 14.3 L Canadian % (Auto) 6.2 Eos % (Auto) 1.6 Baso % (Auto) 0.5 Absolute Neuts (auto) 7.4 Absolute Lymphs (auto) 1.38 Nucleated RBC % 0 PT 13.7 INR 1.1 APTT 29.0 Sodium 136 Potassium 3.8 Chloride 103 Carbon Dioxide 28.0 Anion Gap 5 BUN 12 Creatinine 1.08 Estim Creat Clear Calc 57.21 Est GFR (MDRD) Af Amer 85 Est GFR (MDRD) Non-Af 70 BUN/Creatinine Ratio 11.1 Glucose 120 H Calcium 9.1 Radiography Diagnostic Testing: Venous duplex of the right lower extremity was obtained. There is no evidence of DVT. There is a nonvascularized structure noted in the right gastrocnemius muscle that measures 13.5 x 4 cm. This could be a hematoma from a muscle tear. Treatment and Re-Evaluation Narrative: Patient was advised of his findings. Patient was instructed to ice and elevate the right leg. Patient was instructed to take Tylenol as needed for pain. Patient was instructed to follow-up with his primary care physician in 5 to 7 days. Patient was given signs and symptoms which should prompt return to the emergency department. Patient understood and was agreeable with the plan. All questions were answered. Discharge Plan Triage Chief Complaint: Lower Extremity Injury ED Provider: Selvin Meredith Dx/Rx/DC Orders Clinical Impression: Strain of right calf muscle, Hypertension Instructions: ED Muscle Strain, Extremity Prescriptions: No Action atorvastatin 40 mg tablet 40 mg PO QHS Patient Comments: TAKE 1 TABLET BY MOUTH ONCE DAILY amlodipine 2.5 mg tablet 2.5 tablet PO DAILY lisinopril 40 mg tablet 40 mg PO DAILY Patient Comments: TAKE 1 TABLET BY MOUTH ONCE DAILY hydrochlorothiazide 25 mg tablet 25 tablet PO DAILY aspirin 81 mg tablet,delayed release (DR/EC) 81 mg PO DAILY Primary Care Provider: Cyndi Solis Referrals: Cyndi Solis MD [Primary Care Provider] - 5-7 Days Print Language: Cypriot Disposition Disposition: Home, Self Care
--- NOTE | 2023-10-17 08:43 | VDLE_ITS ---
Reason For Study: Right leg swelling RIGHT LEFT GSV is normal. CFV is compressible, spontaneous, phasic, CFV is compressible, spontaneous, phasic, competent, and demonstrates normal competent and demonstrates normal augmentation. augmentation. FV is compressible, spontaneous, phasic, competent and demonstrates normal augmentation. POP V is compressible, spontaneous, phasic, competent and demonstrates normal augmentation. T/P Trunk is compressible. PTV is compressible. RT PerV is compressible. Nonvascularized structure noted in the right gastrocnemius muscle that measures 13.5 x 4.0 cm. Procedure This is a venous duplex using B-mode, color flow and spectral Doppler. Exam performed portable in ED. A preliminary report was called and/or faxed to Dr. Meredith. VL/Venous Duplex US, Unilateral Interpretation Summary There is no evidence of right lower extremity deep vein thrombosis. Right great saphenous vein appears patent and compressible segmentally. Right calf 13.5 x 4 cm nonvascular structure within the gastrocnemius muscle. Clinical correlation is indicated. Normal flow patterns left common femoral vein. Ordering Physician: Selvin Meredith Referring Physician: Cyndi Solis M.D. Performed By: Tania Parsons RVT
[2023-10-17 09:06] LABS: Absolute Lymphocyte Count 1.38 X10^3/uL (0.83-4.51); Absolute Neutrophil Count 7.4 X10^3/uL (2.0-7.7); Basophil# 0.05 X10^3/uL; Basophil% 0.5 % (0-1); Eosinophil# 0.15 X10^3/uL; Eosinophils% 1.6 % (0-5); Hematocrit 34.8 % (40-54); Hemoglobin 11.4 g/dL (13.0-16.5); Lymphocyte # 1.38 X10^3/ul (0.83-4.51); Lymphocyte % 14.3 % (19-41); Mean Corp Hgb Conc 32.8 g/dL (32-36); Mean Corpuscular Hgb 29.9 pg (27.0-32.0); Mean Corpuscular Volume 91.3 fL (80-94); Mean Platelet Vol. 11.5 fl (6.2-12.0); Monocyte% 6.2 % (0-10); NRBC Flagged by Analyzer 0 % (0-5); Neutrophil # 7.43 X10^3/uL (2.7-7.7); Neutrophil % 76.8 % (47-70); Platelet Count 184 K/mm3 (150-450); RBC Distribution Width CV 12.1 % (11.6-14.6); RBC Distribution Width SD 40.8 fl (35.1-43.9); Red Blood Count 3.81 M/mm3 (4.6-6.2); White Blood Count 9.7 K/mm3 (4.4-11.0)
[2023-10-17 09:19] LABS: Anion Gap 5 (5-15); BUN 12 mg/dL (7-18); BUN/Creat Ratio 11.1 RATIO (10-20); Calcium,Total 9.1 mg/dL (8.5-10.1); Chloride 103 mmol/L (98-107); Creatinine, Serum 1.08 mg/dL (0.70-1.30); EST Glomerular Filtration Rate 70 mL/min (>60); Est Glom Filt Rate - Afr Amer 85 mL/min (>60); Estimated Creatinine Clearance 57.21 ml/min; Glucose 120 mg/dL (74-106); Potassium 3.8 mmol/L (3.5-5.1); Sodium Level 136 mmol/L (136-145)
[2023-10-17 09:22] LABS: International Normalized Ratio 1.1; Prothrombin Time (Protime)PT. 13.7 SECONDS (11.7-14.9)
[2023-10-17 10:31] VITALS: BP 134/78; PULSE 64; RESP 18; TEMP 36.4; O2SAT 99
== END 2023-10-17 10:32 | disposition home or self-care (01) ==
PROVIDERS: Emergency Provider Emergency Medicine; PCP Internal Medicine; Visit Provider Emergency Medicine
DX: S86.111A Strain of other muscle(s) and tendon(s) of posterior muscle group at lower leg level, right leg, initial encounter (principal); I10 Essential (primary) hypertension; Z99.89 Dependence on other enabling machines and devices; G47.30 Sleep apnea, unspecified; E78.00 Pure hypercholesterolemia, unspecified; Z80.0 Family history of malignant neoplasm of digestive organs; M79.89 Other specified soft tissue disorders; X58.XXXA Exposure to other specified factors, initial encounter
CPT/HCPCS: 80048; 85025; 85610; 85730; 93971; 99283; A4216

== ENCOUNTER → 2023-10-27 | Outpatient (CLI) | payer MEDICARE, SELFPAY ==
--- NOTE | 2023-10-27 07:54 | ECHOD_ITS ---
Reason For Study: MURMUR Procedure This was a 2D Doppler, Color Flow transthoracic echocardiogram. Exam performed in department. Left Ventricle Normal LV size. Left ventricular systolic function is normal. The left ventricular ejection fraction is 60 %. Stage 1 diastolic dysfunction. No regional wall motion abnormalities noted. Right Ventricle Normal RV size. Normal systolic function. Atria Normal left atrium. Normal right atrium. Mitral Valve Normal mitral valve. Tricuspid Valve Normal tricuspid valve. Mild (1+) tricuspid valve insufficiency. Pulmonary artery systolic pressure is 32 mmHg. Aortic Valve Trisinus/trileaflet aortic valve. Pulmonic Valve Normal pulmonic valve. Great Vessels Normal aortic root. The pulmonary artery is normal size. Normal inferior vena cava. Pericardium/Pleural No pericardial effusion. MMode/2D Measurements & Calculations LVIDd: 5.2 cm IVSd: 1.0 cm Ao root diam: 3.6 cm LVIDs: 3.2 cm LVPWd: 1.0 cm RVDd: 3.1 cm FS: 39.1 % LAV(MOD-bp): 64.5 ml LVAd ap4: 30.7 cm2 SV(MOD-sp4): 64.4 ml LAV(MOD-bp) Indexed: 36.6 ml/m2 LVLd ap4: 8.1 cm LAV(MOD-sp2): 62.0 ml EDV(MOD-sp4): 95.8 ml LAV(MOD-sp4): 63.8 ml EDV(sp4-el): 98.6 ml LVAs ap4: 15.5 cm2 LVLs ap4: 6.7 cm ESV(MOD-sp4): 31.4 ml ESV(sp4-el): 30.3 ml EF(MOD-sp4): 67.2 % EF(sp4-el): 69.3 % SV(sp4-el): 68.3 ml LA A4 area: 20.8 cm2 LA dimension(2D): 4.5 cm RA A4 area: 15.6 cm2 TAPSE: 2.5 cm Time Measurements MV dec time: 0.22 sec Doppler Measurements & Calculations MV E max esequiel: 96.6 cm/sec Lat Peak E' Esequiel: 12.1 cm/sec Med Peak E' Esequiel: 7.8 cm/sec MV A max esequiel: 132.3 cm/sec E/E' lat: 8.0 E/E' med: 12.4 MV E/A: 0.73 MV V2 max: 140.0 cm/sec MV P1/2t max esequiel: 96.4 cm/sec Ao V2 max: 166.8 cm/sec MV max P.8 mmHg MV P1/2t: 59.5 msec Ao max P.1 mmHg MV V2 mean: 84.7 cm/sec Ao V2 mean: 113.6 cm/sec MV mean P.2 mmHg MV dec slope: 474.2 cm/sec2 Ao mean P.7 mmHg MV V2 VTI: 29.0 cm MVA(P1/2t): 3.7 cm2 Ao V2 VTI: 30.6 cm AV (velocity ratio): 0.81 LV V1 max: 127.1 cm/sec PA V2 max: 173.3 cm/sec TR max esequiel: 266.3 cm/sec LV V1 max P.5 mmHg PA V2 mean: 121.8 cm/sec TR max P.4 mmHg LV V1 mean P.5 mmHg LV V1 mean: 90.0 cm/sec LV V1 VTI: 24.8 cm ECHO/Echo Complete Interpretation Summary Normal LV size. Left ventricular systolic function is normal. The left ventricular ejection fraction is 60 %. Stage 1 diastolic dysfunction. Pulmonary artery systolic pressure is 32 mmHg. Ordering Physician: Cyndi Solis Referring Physician: Cyndi Solis Performed By: Georgiana Thompson RDCS, RVT
== END | disposition home or self-care (01) ==
PROVIDERS: PCP Internal Medicine; Referring Provider Internal Medicine; Visit Provider Internal Medicine
DX: R01.1 Cardiac murmur, unspecified (principal)
CPT/HCPCS: 93306

== ENCOUNTER → 2024-03-27 | Outpatient (CLI) | payer MEDICARE, SELFPAY | END | disposition home or self-care (01) | LOC: LAB 09:09 | PROVIDERS: PCP Internal Medicine; Referring Provider Urology; Visit Provider Urology | DX: R97.20 Elevated prostate specific antigen [PSA] (principal) | CPT/HCPCS: 36415; 84153 ==

== ENCOUNTER → 2024-11-02 | Outpatient (CLI) | payer MEDICARE, SELFPAY ==
--- NOTE | 2024-11-02 07:44 | CDU_ITS ---
Reason For Study Reason For Study: ATHEROSCLEROSIS OF BOTH CAROTID ARTERIES Rt. Velocities/BP Lt. Velocities/BP Prox CCA 105.1/15.5 cm/sec. Prox CCA 138.1/21.2 cm/sec. Mid CCA 127.1/21.2 cm/sec. Mid CCA 203.3/27.7 cm/sec. Dist CCA 96.5/15.5 cm/sec. Dist CCA 188.9/23.1 cm/sec. Prox ICA 105.8/14.4 cm/sec. Prox ICA 87.4/16.2 cm/sec. Mid ICA 76.0/15.8 cm/sec. Mid ICA 67.8/18.7 cm/sec. Dist ICA 76.0/20.8 cm/sec. Dist ICA 81.3/23.6 cm/sec. Rt. ICA/CCA = 76.0/127.1=0.6. Lt. ICA/CCA = 87.4/203.3=0.4. Prox ECA 192.3/10.1 cm/sec. Prox ECA 150.1/4.9 cm/sec. Rt. Vert. 57.0/13.1 cm/sec. Lt. Vert. 69.0/15.0 cm/sec. Right Extracranial There is heterogeneous, irregular atherosclerotic plaque noted in the right common carotid artery. There is heterogeneous, irregular atherosclerotic plaque noted in the right internal carotid artery. The atherosclerotic plaque causes acoustic shadowing. There is heterogeneous, irregular atherosclerotic plaque noted in the right external carotid artery. Antegrade flow is noted in the right vertebral artery. Left Extracranial There is heterogeneous, irregular atherosclerotic plaque noted in the left common carotid artery. There is heterogeneous, irregular atherosclerotic plaque noted in the left internal carotid artery. The atherosclerotic plaque causes acoustic shadowing. There is heterogeneous, irregular atherosclerotic plaque noted in the left external carotid artery. Antegrade flow is noted in the left vertebral artery. Procedure Carotid Duplex 24085. This is a Carotid Duplex examination using B-mode, color flow and specral Doppler. The study was technically difficult. Exam performed in department. VL/Carotid Duplex Ultrasound Interpretation Summary Mild (<50%) stenosis right extracranial internal carotid. Mild (<50%) stenosis left extracranial internal carotid. Patent and antegrade vertebrals bilaterally. Ordering Physician: Yenny Brooks Referring Physician: Yenny Brooks Performed By: Georgiana Thompson, SONG, RVT
== END | disposition home or self-care (01) ==
LOC: CVS 07:41
PROVIDERS: PCP Nurse Practitioner Family; Referring Provider Nurse Practitioner Family; Visit Provider Nurse Practitioner Family
DX: I65.23 Occlusion and stenosis of bilateral carotid arteries (principal)
CPT/HCPCS: 93880